=== PATIENT | female | born 1925 | race Caucasian/White ===

== ENCOUNTER 2016-10-07 18:46 | Inpatient (IN) | payer OTHER, MEDICARE ==
[~2016-10-07] VITALS: Ht 157.5 cm; Wt 58.1 kg
--- NOTE | ~2016-10-07 | H ---
[facility] [place] [address] HISTORY AND PHYSICAL Name: EBENEZER ANDREWS Room #: 422-P ADM IN .R.#: [id number] Admission: 10/07/16 Attend Phys: Justino Cavanaugh Discharge: Date of : 10/[birth year] Report #: [id number] THIS REPORT FOR: //name// CC: Virgilio Read ATTENDING PHYSICIAN: Dr. Terence Read. DICTATING PHYSICIAN: Dr. Wilder Morel. DATE OF ADMISSION: 10/07/2016. DATE OF DICTATION: 10/08/2016. CHIEF COMPLAINT: Excessive somnolence and drowsiness. HISTORY OF PRESENT ILLNESS: The patient is an 89-year-old female with known history of hypertension, dementia, was brought to the Emergency Room by her son. The son reports that he had lunch with her and after that she fell asleep in a chair. The patient had slept for 3-4 hours and had later she had difficulty waking up for dinner. Since then, she has been following commands, but is being somnolent. The patient's son reports that she had a similar episode 2 months ago and was admitted with a diagnosis of TIA. The patient's family was not able to take care of her and hence she was admitted to the hospital for her present condition. The family wanted her to be just comfort care and did not want any aggressive workup. PAST MEDICAL HISTORY: Significant for history of the recent TIA, hypertension, chronic hip and low back pain and osteoarthritis and dementia. ALLERGIES: SHE IS KNOWN TO BE ALLERGIC TO LORAZEPAM. MEDICATIONS: She was currently on was tramadol, Tylenol, Plavix 75 mg daily, Celexa, Aricept, aspirin, Coreg, Demadex, valsartan, gabapentin, which was recently started, and levothyroxine. REVIEW OF SYSTEMS: Not possible. PHYSICAL EXAMINATION: GENERAL: Pleasant elderly lady who was confused and disoriented. She was awake and did not appear to be in any distress. VITAL SIGNS: She was afebrile with a temperature was 36.9, pulse of 52 per minute regular, blood pressure this morning was 156/84. HEENT: There was no pallor, no icterus. Mucosa was moist. NECK: Supple. LUNGS: Clear to auscultation bilaterally with no wheezing or crackles. HEART: First and second normal. There was no gallop. ABDOMEN: Soft, nontender, bowel sounds normally heard. [address] [address] HISTORY AND PHYSICAL Name: EBENEZER ANDREWS Room #: 422-P [facility] IN [facility]#: [id number] Admission: 10/07/16 Attend Phys: Justino Cavanaugh Discharge: Date of : 10/[birth year] Report #: [id number] EXTREMITIES: Did not reveal any edema. NEUROLOGIC: The patient was moving all 4 extremities equally and normally and there were no focal deficits noted. LABORATORY DATA: On admission showed a sodium 141, potassium 4.8, chloride 107, bicarbonate 24, BUN of 34, creatinine 1.4, glucose was 98. Protime was 12.2, INR 1.2, PTT of . White cell count was 6.1, hemoglobin of 15.5, hematocrit 47.2 and a platelet count of 118. Urine was essentially clear. There was trace evidence of leukocyte esterase. Chest x-ray: There was no acute cardiopulmonary abnormality and CT of the head did not show any acute intracranial process. IMPRESSION: 1. Altered mental state, suspect secondary to medications and possible transient ischemic attack. 2. Generalized weakness. 3. Hypertension. 4. Hypothyroidism. 5. Dementia. PLAN: Stop the gabapentin in view of somnolence and drowsiness, monitor the patient closely and have social service assistant evaluate the patient for possible placement. <ELECTRONICALLY SIGNED> By: Wilder Morel MD 10/09/16 0823 [id number] Wilder Morel MD /nt
--- NOTE | ~2016-10-07 | D ---
[facility] [place] [address] DISCHARGE SUMMARY Name: EBENEZER ANDREWS Room #: 422-P ADM IN ..#: [id number] Admission: 10/07/16 Attend Phys: Justino Cavanaugh Discharge: Date of : 10/[birth year] Report #: [id number] THIS REPORT FOR: //name// CC: Virgilio Read DATE OF SERVICE: 10/09/2016 ATTENDING PHYSICIAN: Dr. Virgilio Read. DICTATING PHYSICIAN: Dr. Wilder Morel. DATE OF ADMISSION: 10/07/2016. DATE OF DISCHARGE: 10/09/2016. CHIEF COMPLAINT: Decreased level of consciousness. HISTORY OF PRESENT ILLNESS: The patient is an 89-year-old lady who was excessively drowsy and was brought to the Emergency Room. The patient was evaluated and thought to have a possible TIA. She was admitted to the hospital and had workup done, which was essentially negative. Her urine culture was also negative. The patient woke up spontaneously and did not have any focal deficits. The patient was observed for day and continued to make good progress and was able to ambulate with very minimal assistance. During the stay in the hospital she was noted to have a slow heart rate for which her Coreg dosage was held at night time. Her blood pressure was tolerating other medications and was under control. She did have some mild elevation of her blood pressure in the evenings. The patient is being discharged back to assisted living facility to the care of her. FINAL DIAGNOSES: 1. Hypertension. 2. Bradycardia. 3. Dementia. 4. Hypothyroidism. The discharge medications were reconciled and the patient advised to follow with Dr. Terence Read to address the issue of bradycardia. We will recommend decreasing the dose of Coreg. By: [id number] [id number] Wilder Morel MD /nt
[2016-10-07 18:46] VITALS: BP 184/84
[~2016-10-07 18:46] MED LIST: ACETAMINOPHEN325 M1 PO; AMLODIPINE BESYL5 MG PO; ARICEPT 5 MG TAB5 MG PO; ASPIR 8181 MG PO; CELEXA20 MG PO; CLOPIDOGREL75 MG PO; LEVOTHYROXINE 0.1 MG PO; LISINOPRIL10 MG PO; PREDNISONE 20 M20 M1 PO; PREDNISONE 20 M20 MG PO; PREDNISONE 5 MG5 M1 PO; PRINIVIL20 MG PO; SIMVASTATIN40 MG PO; TOPROL XL25 MG PO; TRAMADOL 50 MG50 MG PO; TYLENOL ARTHRI650 MG PO
[2016-10-07 19:39] LABS: ABSOLUTE NEUTROPHILS 2.8 thou/uL (1.4-8.2); BASOPHILS 0.9 % (0.0-2.0); EOSINOPHILS 3.8 % (0.0-3.0); HEMATOCRIT 47.2 % (37.0-47.0); HEMOGLOBIN 15.5 gm/dL (12.0-15.0); LYMPHOCYTES 38.6 % (24.0-44.0); MANUAL DIFF NO; MCH 32.7 pg (26.0-34.0); MCHC 32.8 g/dL (28.0-37.0); MCV 99.7 fL (80.0-100.0); MONOCYTES 11.5 % (1.0-8.0); PLATELET COUNT 118 thou/uL (150-400); POLYS 45.2 % (36.0-66.0); RBC 4.74 mil/uL (4.20-5.00); RDW 17.2 % (10.5-14.5); WBC 6.1 thou/uL (4.0-11.0)
[2016-10-07 19:42] LABS: URINE BILIRUBIN NEGATIVE (Negative); URINE BLOOD NEGATIVE (Negative); URINE COLOR YELLOW; URINE GLUCOSE-RANDOM* NEGATIVE (Negative); URINE KETONES NEGATIVE (Negative); URINE LEUKOCYTES-REFLEX TRACE (Negative); URINE PROTEIN (DIPSTICK) NEGATIVE (Negative); URINE SPECIFIC GRAVITY 1.015 (1.003-1.035); URINE UROBILINOGEN 0.2 E.U./dl (0.2-1.0)
[2016-10-07 19:50] LABS: CALCIUM 9.2 mg/dL (8.5-10.1); CREATININE 1.4 mg/dL (0.6-1.0); POTASSIUM 4.8 mmol/L (3.5-5.1)
[2016-10-07 19:57] LABS: APTT 28.7 Seconds (24.5-32.8); INR 1.2; PROTIME 12.2 Seconds (9.3-11.4)
[2016-10-07 21:45] VITALS: BP 180/86
[2016-10-07] MEDS ORDERED: ASPIR 8181 MG PO (23:16)
[2016-10-07] MEDS ORDERED: CARVEDILOL12.5 MG PO (23:18)
[2016-10-07] MEDS ORDERED: DEMADEX20 MG PO (23:19)
[2016-10-07] MEDS ORDERED: DIOVAN320 MG PO (23:21)
[2016-10-07] MEDS ORDERED: NEURONTIN 300300 M1 PO (23:23)
[2016-10-07] MEDS ORDERED: MILK OF MA2400 MG/10 PO (23:25)
[2016-10-08] MEDS ORDERED: TYLENOL325 MG PO (02:16)
[2016-10-08] MEDS ORDERED: TRAMADOL 50 MG50 MG PO (02:18)
[2016-10-08] MEDS ORDERED: SENNA8.6 MG PO (02:21)
[2016-10-08] MEDS ORDERED: ROBITUSSIN100 MG/53 PO (02:27)
[2016-10-08 04:00] VITALS: BP 145/83
[2016-10-08 15:23] VITALS: BP 133/94
[2016-10-08 20:00] VITALS: BP 133/76
[2016-10-09 04:30] VITALS: BP 137/67
[2016-10-09 07:16] VITALS: BP 148/72
[2016-10-09 12:00] VITALS: BP 148/72
[2016-10-09 20:42] VITALS: BP 148/72
== END 2016-10-09 13:27 | disposition home or self-care (01) | DRG 310 ==
LOC: ER 18:46 → EROBS 20:51 → 4E 21:40
PROVIDERS: Emergency Medicine
DX: R00.1 Bradycardia, unspecified (principal); I10 Essential (primary) hypertension; F03.90 Unspecified dementia, unspecified severity, without behavioral disturbance, psychotic disturbance, mood disturbance, and anxiety; G89.29 Other chronic pain; M54.5 Low back pain; E03.9 Hypothyroidism, unspecified; M25.559 Pain in unspecified hip; R40.0 Somnolence; M19.90 Unspecified osteoarthritis, unspecified site; Z90.710 Acquired absence of both cervix and uterus; Z88.8 Allergy status to other drugs, medicaments and biological substances; Z86.73 Personal history of transient ischemic attack (TIA), and cerebral infarction without residual deficits
CPT/HCPCS: 10183

== ENCOUNTER 2016-10-11 12:03 | Emergency (ER) | payer OTHER, MEDICARE ==
[~2016-10-11] VITALS: Ht 154.9 cm; Wt 56.7 kg
--- NOTE | ~2016-10-11 | EKG ---
[place] [address] [address] [facility] [place] [address] ELECTROCARDIOGRAM REPORT Name: TANISHA ANDREWSRICIA Shayy Room #: [facility]#: [id number] Admission: 10/11/16 Attend Phys: Discharge: 10/11/16 Date of : 10/[birth year] Report #: [id number] THIS REPORT FOR: //name// [facility] ED Test Date: 2016-10-11 Test Time: 12:08:47 Pat Name: EBENEZER ANDREWS Department: Room: Gender: F Custom Furrier: TERESA : 1925 Requested By: Nguyen Barfield Order Number: [id number] MD: Angelo Corona Measurements Intervals [place] Rate: 44 P: 72 UT: 162 QRS: 121 QRSD: 69 T: 118 QT: 687 QTc: 588 Interpretive Statements Sinus bradycardia Rightward axis Poor R wave progression Nonspecific ST and T-wave abnormality Prolonged QT interval Compared to ECG 07/26/2016 11:36:19 Atrial premature complex(es) no longer present Electronically Signed On 10-12-2016 7:39:32 CDT by Angelo Corona [email or web address] <ELECTRONICALLY SIGNED> By: Angelo Corona MD, [facility] 10/12/16 0739 [id number] Angelo Corona MD, [facility] /EPI
[~2016-10-11 12:03] MED LIST changes: +CARVEDILOL12.5 MG PO; +DEMADEX20 MG PO; +DIOVAN320 MG PO; +MILK OF MA2400 MG/10 PO; +NEURONTIN 300300 M1 PO; +ROBITUSSIN100 MG/53 PO; +SENNA8.6 MG PO; +TYLENOL325 MG PO
[2016-10-11 13:03] LABS: ABSOLUTE NEUTROPHILS 3.2 thou/uL (1.4-8.2); BASOPHILS 0.8 % (0.0-2.0); EOSINOPHILS 3.8 % (0.0-3.0); HEMATOCRIT 46.1 % (37.0-47.0); HEMOGLOBIN 15.2 gm/dL (12.0-15.0); LYMPHOCYTES 35.1 % (24.0-44.0); MANUAL DIFF NO; MONOCYTES 11.5 % (1.0-8.0); PLATELET COUNT 114 thou/uL (150-400); POLYS 48.8 % (36.0-66.0); RBC 4.61 mil/uL (4.20-5.00); RDW 17.6 % (10.5-14.5); WBC 6.6 thou/uL (4.0-11.0)
[2016-10-11 13:12] LABS: ANION GAP 5 mmol/L (7-16); BUN 35 mg/dL (7-18); CHLORIDE 105 mmol/L (98-107); CO2 28 mmol/L (21-32); CREATININE 1.6 mg/dL (0.6-1.0); GLUCOSE 100 mg/dL (74-106); POTASSIUM 5.4 mmol/L (3.5-5.1); SODIUM 138 mmol/L (136-145)
[2016-10-11 13:19] LABS: ALBUMIN 1.9 g/dL (3.4-5.0); ALKALINE PHOSPHATASE 151 U/L (46-116); SGOT 19 U/L (15-37); SGPT 16 U/L (30-65); TOTAL BILIRUBIN 0.8 mg/dL (<0.1-1.0); TOTAL PROTEIN 6.8 g/dL (6.4-8.2); TROPONIN-I < 0.04 ng/mL (<0.04-0.07)
[2016-10-11 13:21] LABS: URINE BILIRUBIN NEGATIVE (Negative); URINE BLOOD NEGATIVE (Negative); URINE COLOR YELLOW; URINE GLUCOSE-RANDOM* NEGATIVE (Negative); URINE KETONES NEGATIVE (Negative); URINE NITRITE NEGATIVE (Negative); URINE PROTEIN (DIPSTICK) NEGATIVE (Negative); URINE SPECIFIC GRAVITY 1.015 (1.003-1.035); URINE UROBILINOGEN 0.2 E.U./dl (0.2-1.0)
[2016-10-11] MEDS ORDERED: NEURONTIN 300300 M1 PO (14:48)
[2016-10-11] MEDS ORDERED: MILK OF MA2400 MG/10 PO (14:49)
[2016-10-11] MEDS ORDERED: DIOVAN320 MG PO (14:50)
[2016-10-11] MEDS ORDERED: TRAMADOL 50 MG50 MG PO (14:51)
[2016-10-11] MEDS ORDERED: ROBITUSSIN DM118 ML PO (14:53)
[2016-10-11] MEDS ORDERED: SENNA S TABLET1 EACH PO (14:54)
== END 2016-10-11 14:58 | disposition home or self-care (01) ==
LOC: ER 12:03
PROVIDERS: Physician Assistant
DX: R53.1 Weakness (principal); R00.1 Bradycardia, unspecified; Z90.710 Acquired absence of both cervix and uterus; I10 Essential (primary) hypertension; G89.29 Other chronic pain; Z88.8 Allergy status to other drugs, medicaments and biological substances; F10.99 Alcohol use, unspecified with unspecified alcohol-induced disorder

== ENCOUNTER → 2017-02-09 | Outpatient (CLI) | payer OTHER, MEDICARE ==
[~2017-02-09] MED LIST changes: +ROBITUSSIN DM118 ML PO; +SENNA S TABLET1 EACH PO
== END ==
LOC: RAD 11:28
DX: M47.894 Other spondylosis, thoracic region (principal); M47.896 Other spondylosis, lumbar region; M41.84 Other forms of scoliosis, thoracic region